=== PATIENT | male | born 1965 | race Caucasian/White ===

== ENCOUNTER 2016-05-24 16:13 | Emergency (ER) | payer OTHER ==
[~2016-05-24] VITALS: Ht 175.3 cm; Wt 83.0 kg
[~2016-05-24 16:13] MED LIST: ADVAIR 100-501 EACH IH; ALEVE220 M2 PO; ALFUZOSIN HCL10 MG PO; ASPIR 8181 M1 PO; ATORVASTATIN CA20 MG PO; BUPROPION XL150 MG PO; CITALOPRAM HBR10 MG PO; FLEXERIL10 MG PO; Pravachol PO
[2016-05-24 17:42] LABS: HEMATOCRIT 46.1 % (38.0-50.0); MCHC 34.1 G/DL (30.0-36.0); MCV 85.2 FL (86-99); MEAN PLAT.VOLUME 10.3 uM^3 (9.0-12.4); PLATELET COUNT 229 K/uL (156-360); RBC DIS.WIDTH-CV 12.8 % (11.8-14.6); RBC DIS.WIDTH-SD 39.4 % (39-53); RED BLOOD COUNT 5.41 M/uL (4.00-5.50); WHITE BLOOD COUNT 9.7 K/uL (4.1-10.2)
[2016-05-24 17:49] LABS: ADD MIUA? NO; BILIRUBIN NEGATIVE; BLOOD NEGATIVE; COLOR YELLOW ((YELLOW)); GLUCOSE (STRIP) NEGATIVE; KETONES NEGATIVE; LEUKOCYTES NEGATIVE; NITRITE NEGATIVE; PROTEIN (STRIP) NEGATIVE; SPECIFIC GRAVITY 1.009 (1.000-1.030); UCUL ADDED? NO; UROBILINOGEN 0.2 MG/DL (0.2-1.0)
[2016-05-24 18:01] LABS: CHLORIDE 108 mEq/L (99-109); POTASSIUM 4.2 mEq/L (3.7-5.4); SODIUM 141 mEq/L (136-147)
[2016-05-24 18:04] LABS: GLUCOSE 85 mg/dL (70-99)
[2016-05-24 18:05] LABS: ANION GAP 8 MEQ/L (2-14)
[2016-05-24 18:06] LABS: TOTAL BILIRUBIN 0.5 mg/dL (0.0-1.0)
[2016-05-24 18:07] LABS: ALKALINE PHOSPHATASE 66 IU/L (3-129); GFR ESTIMATE (CALCULATED) > 59 mL/min/
[2016-05-24 18:08] LABS: UREA NITROGEN (BUN) 10 mg/dL (9-23)
[2016-05-24] MEDS ORDERED: CLEOCIN300 MG PO (19:48)
[2016-05-24 20:24] VITALS: BP 133/79
== END 2016-05-24 20:27 | disposition home or self-care (01) ==
LOC: EME 16:13
PROVIDERS: Physician Assistant
DX: L03.311 Cellulitis of abdominal wall (principal); F17.200 Nicotine dependence, unspecified, uncomplicated; Z98.890 Other specified postprocedural states
CPT/HCPCS: 74177; 80053; 81003; 85027; 99281; 99285; J0696; J7030; J7050